=== PATIENT | female | born 1995 | race African-American/Black ===

== ENCOUNTER 2017-04-22 11:52 | Emergency (ER) | payer OTHER ==
[2017-04-22 12:46] LABS: Hematocrit 39 % (35-47); Hemoglobin 12.6 g/dl (12.0-16.0); Mean Corpuscular HGB Conc 32 g/dl (31-36); Mean Corpuscular Hemoglobin 28 pg (27-31); Mean Corpuscular Volume 85 fL (80-97); Mean Platelet Volume 10 um3 (7.4-10.4); Red Blood Count 4.57 10^6/ul (4.0-5.4); Red Cell Distribution Width 14 % (10.5-15)
[2017-04-22 12:50] LABS: Add Diff/Slide Review? Slide Review Added; Comments Flag Yes
[2017-04-22 12:58] LABS: ALT 15 U/L (7-52); AST 22 U/L (13-39); Albumin 4.3 g/dL (3.2-5.2); Alkaline Phosphatase 54 U/L (34-104); Anion Gap 7 mmol/L (2-11); BUN/Creatinine Ratio 16.2 (8-20); Blood Urea Nitrogen 12 mg/dL (6-24); CO2 Carbon Dioxide 21 mmol/L (22-32); Calcium 9.1 mg/dL (8.6-10.3); Chloride 110 mmol/L (101-111); EGFR Non-African American 101.1 (>60); Globulin 2.2 g/dL (2-4); Glucose 84 mg/dL (70-100); Potassium 3.7 mmol/L (3.5-5.0); Sodium 138 mmol/L (133-145); Total Protein 6.5 g/dL (6.4-8.9)
[2017-04-22] MEDS ORDERED: Ketorolac INJ* 60 MG/2 ML VIAL IM ONE (13:52)
[2017-04-22 14:05] VITALS: BP 97/61
[2017-04-22 14:19] LABS: Urine Bacteria Absent (Absent); Urine Bilirubin Negative (Negative); Urine Glucose Negative (Negative); Urine Nitrite Negative (Negative)
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
== END 2017-04-22 14:12 | disposition home or self-care (01) ==
LOC: ED 11:52
DX: N94.6 Dysmenorrhea, unspecified (principal); R11.2 Nausea with vomiting, unspecified; R42 Dizziness and giddiness; R10.9 Unspecified abdominal pain
CPT/HCPCS: 36415; 80053; 81003; 81015; 84702; 85025; 96372; 99282; J1885

== ENCOUNTER 2017-10-27 09:07 | Emergency (ER) | payer OTHER ==
[2017-10-27 09:15] VITALS: BP 129/93
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
== END 2017-10-27 09:55 | disposition home or self-care (01) ==
LOC: ED 09:07
DX: K04.7 Periapical abscess without sinus (principal); K08.89 Other specified disorders of teeth and supporting structures; F17.200 Nicotine dependence, unspecified, uncomplicated
CPT/HCPCS: 99282

== ENCOUNTER → 2018-07-02 22:02 | Emergency (ER) | payer SELFPAY ==
[~2018-07-02 22:02] MED LIST: Haloperidol INJ IV/IM* 5 MG/ML AMP IM ONE; Haloperidol INJ IV/IM* 5 MG/ML AMP ONE; LORazepam INJ* 2 MG/ML 1 ML VIAL IM ONE; LORazepam INJ* 2 MG/ML 1 ML VIAL ONE
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
[2018-07-02 23:28] LABS: Hematocrit 42 % (35-47); Hemoglobin 13.5 g/dl (12.0-16.0); Mean Corpuscular HGB Conc 32 g/dl (31-36); Mean Corpuscular Hemoglobin 28 pg (27-31); Mean Corpuscular Volume 87 fL (80-97); Mean Platelet Volume 9.9 um3 (7.4-10.4); Platelet Count 210 10^3/ul (150-450); Red Blood Count 4.82 10^6/ul (4.00-5.40); Red Cell Distribution Width 14 % (10.5-15); White Blood Count 5.5 10^3/ul (3.5-10.8)
[2018-07-02 23:38] LABS: EGFR Non-African American 85.6 (>60)
[2018-07-02 23:41] LABS: ABS Basophils 0.1 10^3/ul (0-0.2); ABS Eosinophils 0 10^3/ul (0-0.6); ABS Lymphocytes 2.2 10^3/ul (1.0-4.8); ABS Monocytes 0.4 10^3/ul (0-0.8); ABS Neutrophils 2.8 10^3/ul (1.5-7.7); ABS Nucleated RBC 0 10^3/ul; Eosinophil % 0.7 % (0-6); Nucleated Red Blood Cells % 0.3
[2018-07-03 06:51] VITALS: BP 124/76
== END | disposition home or self-care (01) ==
LOC: ED 22:02
DX: F10.129 Alcohol abuse with intoxication, unspecified (principal); F17.200 Nicotine dependence, unspecified, uncomplicated
CPT/HCPCS: 36415; 80053; 80320; 84702; 85025; 99284; G0480; J1630; J2060